=== PATIENT | female | born 1930 | race Caucasian/White ===

== ENCOUNTER 2018-10-21 06:56 | Day surgery (SDC) ==
--- NOTE | 2018-10-14 11:58 | EKG Report ---
Test Performed on : 10/14/2018 11:48:07 AM Test Reason : PAT Blood Pressure : / mmHG Vent. Rate : 078 BPM Atrial Rate : 078 BPM P-R Int : 128 ms QRS Dur : 090 ms QT Int : 364 ms P-R-T Axes : 006 030 085 degrees QTc Int : 414 ms Normal sinus rhythm. Nonspecific T wave abnormality Abnormal ECG No previous ECGs available Confirmed by Dennis Vegas MD ([id number]) on 10/16/2018 9:06:55 PM
[2018-10-14 12:53] LABS: HEMATOCRIT 39.6 % (37.0-47.0); HEMOGLOBIN 12.7 g/dL (12.0-16.0); MCH 28.5 PG (27-31); MCHC 32.1 g/dL (33-37); MPV 10.5 FL (7.4-10.4); RBC 4.45 XMIL (4.2-5.4); RDW 16.1 % (11.5-14.5); WBC 7.97 X1000 (4.8-10.8)
[2018-10-14 13:13] LABS: CALCIUM 9.7 mg/dL (8.8-10.2); CREATININE 1.2 mg/dL (0.5-0.9); POTASSIUM 4.1 mmol/L (3.5-5.1)
[2018-10-21] MEDS ORDERED: PEPCID ONE (07:32)
[2018-10-21] MEDS ORDERED: KEFZOL 1 GM/D5W 1 GM/50 ML IVPB ONE (07:32)
[2018-10-21] MEDS ORDERED: LR 1,000 ML ONE ×2 (07:33→11:11)
[2018-10-21] MEDS ORDERED: TRANSDERM-SCOP ONE (08:06)
[2018-10-21] MEDS ORDERED: FENTANYL ONE (08:31)
[2018-10-21] MEDS ORDERED: SENSORCAINE 0.25%/EPI 1:200,000 ONE (09:29)
[2018-10-21] MEDS ORDERED: ZOFRAN IV PRN (11:32)
[2018-10-21] MEDS ORDERED: MORPHINE IV PRN (11:32)
[2018-10-21] MEDS ORDERED: NORCO-10 PO PRN (11:32)
--- NOTE | 2018-10-21 12:20 | OPERATIVE NOTE ---
PROCEDURE DATE: 10/21/2018 PROCEDURE PERFORMED: Left axillary dissection. SURGEON: Atilio Chase MD. CRIMINAL LEGAL ASSISTANT: MARTÍN Friend. 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 INDICATIONS FOR PROCEDURE: This patient had a previous fine-needle aspiration of a node in the left axilla proving it to be squamous cell carcinoma. DESCRIPTION OF PROCEDURE: Satisfactory general endotracheal anesthesia was achieved. The left axilla and arm were prepped and draped in a sterile fashion. We made a transverse herb in the left axilla inferiorly. We anesthetized the skin with 0.25 percent Marcaine with epinephrine. We incised the skin, and carried our incision in the subcutaneous tissue. We dissected posteriorly to the edge of the latissimus muscle anteriorly to the edge of the pectoralis major muscle. We then dissected laterally and superficially until we intersected the axillary vein. We then dissected from lateral to medial along the course of the axillary vein until we reached the apex of the axilla where we could the hard lymph nodes. We then identified the small veins coming off inferiorly from the axillary vein. We ligated and divided them with 3-0 silk ties. We then identified the thoracodorsal nerve and protected it from harm. We then dissected medially and identified the long thoracic nerve and protected it from harm. We dissected the lymphatics at the very apex of the axilla, clipped and divided them until the adenopathy was freed and brought down. After dissecting further along the course of the axillary vein, we were able to clamp the tissue between the long thoracic nerve and the thoracodorsal nerve. We divided that tissue and ligated it proximally with 2-0 silk free tie. We then dissected the tissue from between the nerves until the nerves were seen to dive into their respective muscles. The blood supply to the latissimus dorsi muscle was preserved. We continued to dissect until we freed the tissue from the very most inferior aspect of the triangle. We handed off the axillary contents. Satisfactory hemostasis achieved. We placed a Mani drain within the wound, and secured at the skin with 2-0 silk. We then closed the subcutaneous tissue with 3-0 Polysorb interrupted stitches. We closed the skin with a 4-0 Polysorb subcuticular stitch. Sterile Telfa and OpSite was applied. The gauze was placed around the exit site of the drain. She tolerated it well, and was sent to the recovery room in satisfactory condition. cc: Atilio Chase MD
[2018-10-21] MEDS: LR 1,000 ML IV SCH (17:30)
[2018-10-21] MEDS: KEFZOL 1 GM/D5W 1 GM/50 ML IVPB IV SCH (17:30)
[2018-10-21] MEDS: GLUCOPHAGE PO SCH (17:31)
--- NOTE | 2018-10-21 19:06 | GENERAL SURGERY PROGRESS NOTE ---
DATE: 10/21/2018 TIME: 4:40 p.m. She is doing generally well. Says she is a little swimmy-headed. Drain is functioning well. We will see how she does tonight and hopefully discharge her in the morning if everything is fine. cc: Atilio Chase MD
[2018-10-21 21:06] LABS: URINE SOURCE CLEAN CATCH
[2018-10-21 21:13] LABS: BILIRUBIN URINE NEGATIVE (NEGATIVE); BLOOD URINE SMALL (NEGATIVE); COLOR YELLOW; GLUCOSE URINE TRACE mg/dL (NEGATIVE); KETONE URINE TRACE mg/dL (NEGATIVE); LEUKOCYTES URINE NEGATIVE (NEGATIVE); NITRITE URINE NEGATIVE (NEGATIVE); PROTEIN URINE TRACE mg/dL (NEGATIVE); SP GRAVITY URINE 1.027; TURBIDITY URINE CLEAR (CLEAR); UROBILINOGEN URINE NORMAL (NORMAL)
[2018-10-21 21:14] LABS: UR EPITHELIAL CELLS <10 /HPF (<10); URINE BACTERIA NEGATIVE /HPF; URINE WBC <10 /HPF (<10)
[2018-10-21] MEDS: PERIDEX MT SCH (21:14)
[2018-10-22] MEDS: LR 1,000 ML IV SCH (02:03)
[2018-10-22] MEDS: KEFZOL 1 GM/D5W 1 GM/50 ML IVPB IV SCH (02:03)
[2018-10-22 07:17] VITALS: BP 110/54
[2018-10-22] MEDS: PERIDEX MT SCH (08:45)
[2018-10-22] MEDS: GLUCOPHAGE PO SCH (08:46)
[2018-10-22] MEDS ORDERED: VITAMIN B-12 PO SCH (09:00)
[2018-10-22] MEDS ORDERED: HYDROCHLOROTHIAZIDE PO SCH (09:00)
[2018-10-22] MEDS ORDERED: OSCAL 500 PO SCH (09:00)
--- NOTE | 2018-10-22 10:28 | GENERAL SURGERY PROGRESS NOTE ---
DATE: 10/22/2018 She is postoperative day 1 after a left axillary dissection. She is doing generally well. She feels better today than she did last night. She is afebrile with stable hemodynamics. She had 170 mL of fluid out her drain. The plan is to discharge her. We will instruct her on how to empty the drain. She is to keep her record. She will return to the office in a week. She will resume her usual medications. cc: Atilio Chase MD
== END 2018-10-22 11:17 | disposition home or self-care (01) ==
LOC: OR 06:56 → 4N 06:56 → OR 10-22 11:17
PROVIDERS: ATTEND Surgery